=== PATIENT | male | born 1975 | race Hispanic/Latino ===

== ENCOUNTER 2018-12-22 22:32 | Emergency (ER) | payer SELFPAY ==
--- NOTE | 2018-12-23 09:33 | RAD ---
PORTABLE FRONTAL CHEST RADIOGRAPH: DATE: 12/22/2018. COMPARISON: None. HISTORY: Flu-like symptoms. FINDINGS: Lungs are clear. Heart and mediastinal contours unremarkable. IMPRESSION: No acute findings. POS: [facility]
== END 2018-12-23 00:28 | disposition home or self-care (01) ==
LOC: ERS 22:32
DX: J06.9 Acute upper respiratory infection, unspecified (principal); F17.210 Nicotine dependence, cigarettes, uncomplicated; Z71.6 Tobacco abuse counseling
CPT/HCPCS: 71045; 87804; 99406